=== PATIENT | male | born 1965 | race Caucasian/White ===

== ENCOUNTER 2017-03-09 07:43 | Observation (INO) | payer OTHER ==
[~2017-03-09] VITALS: Ht 175.3 cm; Wt 93.0 kg
[~2017-03-09 07:43] MED LIST: ALBUTEROL SULF8.5 GM IH; ASPIRIN325 MG PO; ATORVASTATIN CA80 MG PO; GABAPENTIN100 MG PO; MELOXICAM15 MG PO; NORVASC10 MG PO; OXYCODONE HCL15 MG PO; PERCOCET 10/1 TABLET PO; PERCOCET 5/31 TABLET PO; PREDNISONE20 MG PO; QUINAPRIL HCL40 MG PO; TOPROL XL50 MG PO; TORADOL10 MG PO
[2017-03-09] MEDS ORDERED: METOPROLOL TART25 MG PO (08:00)
[2017-03-09] MEDS ORDERED: FAMOTIDINE20 MG PO (08:01)
[2017-03-09] MEDS ORDERED: AMLODIPINE BESY10 MG PO (08:01)
[2017-03-09] MEDS ORDERED: LISINOPRIL20 MG PO (08:01)
[2017-03-09] MEDS ORDERED: PANTOPRAZOLE SO40 MG PO (08:01)
[2017-03-09] MEDS ORDERED: LOVASTATIN20 MG PO (08:02)
[2017-03-09] MEDS ORDERED: ZOLPIDEM TARTRA10 MG PO (08:02)
[2017-03-09 08:24] LABS: BASOPHIL COUNT 0.1 K/uL (0-0.1); EOSINOPHIL (%) 4.9 % (0-5); EOSINOPHIL COUNT 0.3 K/uL (0-0.3); HEMATOCRIT 42.6 % (38.0-50.0); IMMATURE GRANULOCYTE (%) 0.6 % (0.0-0.7); LYMPHOCYTE COUNT 1.9 K/uL (1.0-2.8); MCH 31.6 PG (29.0-34.0); MCHC 36.2 G/DL (30.0-36.0); MCV 87.5 FL (86-99); MEAN PLAT.VOLUME 10.7 uM^3 (9.0-12.4); MONOCYTE (%) 8.1 % (3-12); MONOCYTE COUNT 0.6 K/uL (0-0.8); NEUTROPHIL (%) 57.6 % (45-76); PLATELET COUNT 154 K/uL (156-360); RBC DIS.WIDTH-CV 13.5 % (11.8-14.6); RED BLOOD COUNT 4.87 M/uL (4.00-5.50); WHITE BLOOD COUNT 6.9 K/uL (4.1-10.2)
[2017-03-09 08:42] LABS: CHLORIDE 105 mEq/L (99-109); POTASSIUM 4.3 mEq/L (3.7-5.4); SODIUM 136 mEq/L (136-147)
[2017-03-09 08:43] LABS: GLUCOSE 137 mg/dL (70-99)
[2017-03-09 08:45] LABS: ANION GAP 22 MEQ/L (2-14)
[2017-03-09 08:47] LABS: GFR ESTIMATE (CALCULATED) > 59 mL/min/
[2017-03-09 08:48] LABS: UREA NITROGEN (BUN) 18 mg/dL (9-23)
[2017-03-09 08:52] LABS: TROP-I INTERPRETATION NEGATIVE; TROPONIN-I < 0.01 ng/mL (0.0-0.30)
[2017-03-09 09:31] LABS: PROTHROMBIN TIME 9.8 (9.2-11.2); PTT 27.3 (25-32)
[2017-03-09 10:38] LABS: BICARBONATE 22.3 mEq/L (22-26); CARBOXY HGB 4.7 % (0-5); METHEMOGLOBIN 1.3 % (0-1.5); PCO2 36 mm Hg (35-45); PO2 95 mm Hg (80-100)
[2017-03-09 10:39] LABS: COMMENTS - BLOOD GASES A+C+; DEVICE RA; SITE LR; TOTAL RESP RATE 16 resp/min
[2017-03-09 12:32] VITALS: BP 112/69
[2017-03-09 15:48] VITALS: BP 111/58
[2017-03-09 16:39] LABS: AMYLASE 31 IU/L (1-118); ANION GAP 11 MEQ/L (2-14); CHLORIDE 106 MEQ/L (99-109); POTASSIUM 4.1 MEQ/L (3.7-5.4); SAMPLE HEMOLYSIS CHECK 2; SAMPLE ICTERIC CHECK 0; SAMPLE LIPEMIA CHECK 1; SODIUM 139 MEQ/L (136-147)
[2017-03-09 16:48] LABS: TROP-I INTERPRETATION NEGATIVE; TROPONIN-I < 0.01 ng/mL (0.0-0.30)
[2017-03-09 17:03] LABS: GFR ESTIMATE (CALCULATED) > 59 mL/min/; HDL CHOLESTEROL 22 MG/DL (Desirable>=40); LIPASE 35 U/L (1.0-51.0); NON-HDL CHOLESTEROL 251 mg/dL (Desirable<160); TOTAL CHOLESTEROL 273 mg/dL (Desirable<200); TRIGLYCERIDES 1308 MG/DL (Normal: <150); UREA NITROGEN (BUN) 15 mg/dL (9-23)
[2017-03-09 17:16] LABS: GLUCOSE 84 mg/dL (70-99)
[2017-03-09 21:00] VITALS: BP 129/71
[2017-03-09 23:32] LABS: TROP-I INTERPRETATION NEGATIVE; TROPONIN-I < 0.01 ng/mL (0.0-0.30)
[2017-03-09 23:55] VITALS: BP 101/54
[2017-03-10 04:07] VITALS: BP 106/54
[2017-03-10 05:58] LABS: HEMATOCRIT 38.8 % (38.0-50.0); MCH 31.5 PG (29.0-34.0); MCHC 35.1 G/DL (30.0-36.0); MCV 89.8 FL (86-99); MEAN PLAT.VOLUME 10.6 uM^3 (9.0-12.4); PLATELET COUNT 135 K/uL (156-360); RBC DIS.WIDTH-CV 13.9 % (11.8-14.6); RBC DIS.WIDTH-SD 45.4 % (39-53); RED BLOOD COUNT 4.32 M/uL (4.00-5.50)
[2017-03-10 06:51] LABS: ANION GAP 7 MEQ/L (2-14); CHLORIDE 110 MEQ/L (99-109); GFR ESTIMATE (CALCULATED) > 59 mL/min/; GLUCOSE 91 mg/dL (70-99); POTASSIUM 4.3 MEQ/L (3.7-5.4); SAMPLE HEMOLYSIS CHECK 0; SAMPLE ICTERIC CHECK 0; SAMPLE LIPEMIA CHECK 0; SODIUM 140 MEQ/L (136-147); UREA NITROGEN (BUN) 15 mg/dL (9-23)
[2017-03-10 08:40] VITALS: BP 131/71
[2017-03-10 11:35] LABS: ALKALINE PHOSPHATASE 53 IU/L (3-129); DIRECT BILIRUBIN 0.1 mg/dL (0.0-0.3); TOTAL BILIRUBIN 0.3 MG/DL (0.0-1.0)
[2017-03-10] MEDS ORDERED: FENOFIBRATE145 M1 PO (11:48)
[2017-03-10 12:18] VITALS: BP 126/70
== END 2017-03-10 13:20 | disposition home or self-care (01) ==
LOC: EME 07:43 → EDOF 11:16 → 5WEST 11:16
PROVIDERS: Emergency Medicine; Internal Medicine; Internal Medicine Nephrology
DX: R07.89 Other chest pain (principal); E86.0 Dehydration; I25.10 Atherosclerotic heart disease of native coronary artery without angina pectoris; I10 Essential (primary) hypertension; E78.5 Hyperlipidemia, unspecified; E87.2 Acidosis; K21.9 Gastro-esophageal reflux disease without esophagitis; F17.210 Nicotine dependence, cigarettes, uncomplicated; Z95.5 Presence of coronary angioplasty implant and graft; I25.2 Old myocardial infarction; E78.1 Pure hyperglyceridemia
CPT/HCPCS: 36600; 71010; 71275; 80048; 80048 91; 80061; 80076; 82150; 82803; 83605; 83690; 84484; 85025; 85027; 85610; 85730; 93005; G0378; J2270; J7030